=== PATIENT | female | born 1955 | race Caucasian/White ===

== ENCOUNTER → 2020-04-04 | Outpatient (CLI) | payer OTHER ==
[~2020-04-04] MED LIST: ALLERGY RELIEF180 MG PO; CATAPRES 0.1MG0.1 MG PO; FEMARA2.5 MG PO; GLUCOPHAGE1000 MG PO; HYDRALAZINE HC100 MG PO; HYDROCHLOROTHIA25 MG PO; ISOSORBIDE DINI30 MG PO; LISINOPRIL40 MG PO; LOPRESSOR100 MG PO; NITROSTAT 0.40.4 MG SL; PANTOPRAZOLE SO40 MG PO; PAROXETINE HCL40 MG PO; PRAVACHOL20 MG PO; SINGULAIR10 MG PO
== END ==
LOC: HEART 5 09:36
DX: R06.00 Dyspnea, unspecified (principal); R94.2 Abnormal results of pulmonary function studies
CPT/HCPCS: 94010; 94729

== ENCOUNTER → 2021-05-08 | Outpatient (CLI) | payer MEDICARE, OTHER | LOC: CT 03-03 13:00 | DX: R91.8 Other nonspecific abnormal finding of lung field (principal); J98.09 Other diseases of bronchus, not elsewhere classified | CPT/HCPCS: 36415; 71260; 82565; Q9967 ==

== ENCOUNTER → 2021-06-05 | Outpatient (CLI) | payer MEDICARE, OTHER | LOC: MAMO 12-23 15:30 | DX: Z12.31 Encounter for screening mammogram for malignant neoplasm of breast (principal) | CPT/HCPCS: 77063; 77067 ==

== ENCOUNTER → 2021-10-01 | Outpatient (CLI) | payer MEDICARE, OTHER | LOC: EXRD 09-01 08:30 | DX: Z78.0 Asymptomatic menopausal state (principal) | CPT/HCPCS: 77080 ==